=== PATIENT | female | born 2000 | race Caucasian/White ===

== ENCOUNTER 2021-10-20 16:15 | Inpatient (IN) | payer BC, OTHER ==
[~2021-10-20] VITALS: Ht 165.1 cm; Wt 61.4 kg
[2021-10-20 19:03] LABS: HEMOGLOBIN 13.7 g/dl (12.0-15.5); MEAN CORPUSCULAR HEMOGLOBIN 29.2 pg (27.0-33.0); MEAN CORPUSCULAR HGB CONC 33.4 g/dl (32.0-36.5); MEAN CORPUSCULAR VOLUME 87.4 fl (80.0-96.0); PLATELET COUNT, AUTOMATED 257 10^3/uL (150-450); RED BLOOD COUNT 4.69 10^6/uL (4.00-5.40); WHITE BLOOD COUNT 5.2 10^3/uL (4.0-10.0)
[2021-10-20 19:20] LABS: HCG, SERUM QUALITATIVE NEGATIVE (NEGATIVE)
[2021-10-20 19:54] LABS: BLOOD UREA NITROGEN 8 MG/DL (7-18); CHLORIDE LEVEL 110 MEQ/L (98-107); CREATININE FOR GFR 0.73 MG/DL (0.55-1.30); GLOMERULAR FILTRATION RATE > 60.0 (>60); GLUCOSE, FASTING 91 MG/DL (70-100); POTASSIUM SERUM 4.1 MEQ/L (3.5-5.1); SODIUM LEVEL 141 MEQ/L (136-145)
[2021-10-20 19:55] LABS: ACETAMINOPHEN LEVEL < 2.0 UG/ML (10.0-30.0); ALBUMIN 3.7 GM/DL (3.2-5.2); ALT/SGPT 17 IU/L (0-32); BILIRUBIN,DIRECT < 0.1 MG/DL (0.0-0.2); BILIRUBIN,TOTAL 0.2 MG/DL (0.2-1.0); CALCIUM LEVEL 9.3 MG/DL (8.5-10.1); CARBON DIOXIDE LEVEL 24 mmol/L (20-29); ETHYL ALCOHOL (ETHANOL) < 0.003 % (0.000-0.010); SALICYLATE LEVEL < 1.7 MG/DL (5.0-30.0); TOTAL PROTEIN 7.1 GM/DL (6.4-8.2)
[2021-10-20 20:10] LABS: AMPHETAMINES LEVEL URINE NEGATIVE (NEGATIVE)
[2021-10-20 20:11] LABS: BARBITURATES URINE NEGATIVE (NEGATIVE); BENZODIAZEPINES URINE NEGATIVE (NEGATIVE); CANNABINOIDS URINE NEGATIVE (NEGATIVE); COCAINE METABOLITE URINE NEGATIVE (NEGATIVE); METHADONE URINE NEGATIVE (NEGATIVE); OPIATES URINE NEGATIVE (NEGATIVE); PHENCYCLIDINE URINE NEGATIVE (NEGATIVE)
[2021-10-20 20:28] LABS: RSV AMPLIFICATION NEGATIVE (NEGATIVE)
[2021-10-21] MEDS ORDERED: VENL37.598 PO (02:17)
[2021-10-21] MEDS ORDERED: LAMO100T80 PO (02:17)
[2021-10-21] MEDS ORDERED: NORGTAB2 PO (02:17)
[2021-10-21] MEDS ORDERED: HOME MED LIST COMPLETE! XX SCH (02:20)
[2021-10-21] MEDS ORDERED: VENLAFAXINE 37.5 MG TAB PO ONE (10:00)
[2021-10-21] MEDS ORDERED: VENLAFAXINE **XR** 37.5 MG CAPSULE PO ONE (10:20)
[2021-10-21] MEDS ORDERED: MOM 30ML SUSPENSION UDC PO PRN ×2 (14:55→15:30)
[2021-10-21] MEDS ORDERED: IBUPROFEN 400MG TAB PO PRN ×2 (14:55→15:30)
[2021-10-21] MEDS ORDERED: MAALOX 30 ML SUSP *UDC PO PRN ×2 (14:55→15:30)
[2021-10-21] MEDS ORDERED: traZODone 50 MG TAB PO PRN (14:55)
[2021-10-21] MEDS ORDERED: hydrOXYzine 50 MG TAB PO PRN (14:55)
[2021-10-21 15:55] VITALS: BP 122/88
[2021-10-21] MEDS: traZODone 50 MG TAB PO PRN (20:54)
[2021-10-21] MEDS: buPROPion 100 MG TAB PO SCH (20:55)
[2021-10-21] MEDS ORDERED: buPROPion 100 MG TAB PO SCH (21:00)
[2021-10-22 06:29] VITALS: BP 117/66
[2021-10-22] MEDS ORDERED: VENLAFAXINE 37.5 MG TAB PO SCH (09:00)
[2021-10-22] MEDS ORDERED: VENLAFAXINE 37.5 MG TAB PO ONE ×2 (09:00)
[2021-10-22] MEDS: buPROPion 100 MG TAB PO SCH (09:00)
[2021-10-22] MEDS: lamoTRIgine 100MG TAB PO SCH (11:02)
[2021-10-22 18:34] VITALS: BP 125/73
[2021-10-22] MEDS: DOCUSATE SODIUM 100MG CAPSULE PO SCH (21:11)
[2021-10-22] MEDS: traZODone 50 MG TAB PO PRN (22:59)
[2021-10-23 07:10] VITALS: BP 114/56
[2021-10-23] MEDS: LURASIDONE 20 MG TAB (LATUDA) PO SCH (09:07)
[2021-10-23] MEDS: lamoTRIgine 100MG TAB PO SCH (09:08)
[2021-10-23] MEDS: DOCUSATE SODIUM 100MG CAPSULE PO SCH ×2 (09:08→19:16)
[2021-10-23] MEDS: buPROPion **XL** TABLET 150MG (WELLBUTRIN XL) PO SCH (10:59)
[2021-10-23 14:09] LABS: CHOLESTEROL RISK RATIO 3.294 (<5)
[2021-10-23 18:40] VITALS: BP 130/65
[2021-10-23] MEDS: MIRALAX *UNIT DOSE* 17GM PACKET PO PRN (19:16)
[2021-10-23] MEDS: traZODone 50 MG TAB PO PRN (22:16)
[2021-10-24 07:03] VITALS: BP 131/64
[2021-10-24] MEDS: buPROPion **XL** TABLET 150MG (WELLBUTRIN XL) PO SCH (08:39)
[2021-10-24] MEDS: DOCUSATE SODIUM 100MG CAPSULE PO SCH ×2 (08:39→20:37)
[2021-10-24] MEDS: LURASIDONE 20 MG TAB (LATUDA) PO SCH (08:39)
[2021-10-24] MEDS: lamoTRIgine 100MG TAB PO SCH (08:39)
[2021-10-24 18:37] VITALS: BP 137/63
[2021-10-24] MEDS: MIRALAX *UNIT DOSE* 17GM PACKET PO PRN (19:06)
[2021-10-24] MEDS: traZODone 50 MG TAB PO PRN (20:37)
[2021-10-25 06:31] VITALS: BP 108/58
[2021-10-25] MEDS: DOCUSATE SODIUM 100MG CAPSULE PO SCH ×2 (08:38→20:21)
[2021-10-25] MEDS: LURASIDONE 20 MG TAB (LATUDA) PO SCH (08:38)
[2021-10-25] MEDS: buPROPion **XL** TABLET 150MG (WELLBUTRIN XL) PO SCH (08:38)
[2021-10-25] MEDS: lamoTRIgine 100MG TAB PO SCH (08:38)
[2021-10-25 18:00] VITALS: BP 132/71
[2021-10-25] MEDS: MIRALAX *UNIT DOSE* 17GM PACKET PO PRN (19:24)
[2021-10-25] MEDS: traZODone 50 MG TAB PO PRN (20:21)
[2021-10-26] MEDS: hydrOXYzine 50 MG TAB PO PRN ×2 (03:42→20:27)
[2021-10-26] MEDS: lamoTRIgine 100MG TAB PO SCH (08:53)
[2021-10-26] MEDS: DOCUSATE SODIUM 100MG CAPSULE PO SCH ×2 (08:53→20:27)
[2021-10-26] MEDS: buPROPion **XL** TABLET 150MG (WELLBUTRIN XL) PO SCH (08:53)
[2021-10-26] MEDS: LURASIDONE 20 MG TAB (LATUDA) PO SCH (08:53)
[2021-10-26] MEDS ORDERED: BISACODYL 10 MG SUPP PR PRN (17:40)
[2021-10-26 18:00] VITALS: BP 128/59
[2021-10-26] MEDS: SENNA 8.6 MG TAB (SENOKOT) PO SCH (20:27)
[2021-10-27 07:04] VITALS: BP 110/60
[2021-10-27] MEDS: lamoTRIgine 100MG TAB PO SCH (08:23)
[2021-10-27] MEDS: LURASIDONE 20 MG TAB (LATUDA) PO SCH (08:23)
[2021-10-27] MEDS: buPROPion **XL** TABLET 150MG (WELLBUTRIN XL) PO SCH (08:23)
[2021-10-27] MEDS: SENNA 8.6 MG TAB (SENOKOT) PO SCH (08:23)
[2021-10-27] MEDS: DOCUSATE SODIUM 100MG CAPSULE PO SCH (08:23)
[2021-10-27] MEDS ORDERED: TRAZ-252 PO (11:26)
[2021-10-27] MEDS ORDERED: LATU20TA PO (11:26)
[2021-10-27] MEDS ORDERED: COLA100C5 PO (11:26)
[2021-10-27] MEDS ORDERED: HYDR50TA70 PO (11:26)
[2021-10-27] MEDS ORDERED: BUPR150T12 PO (11:26)
[2021-10-27] MEDS ORDERED: MIRA1POW3 PO (11:26)
[2021-10-27] MEDS ORDERED: LAMO100T80 PO (11:26)
[2021-10-27] MEDS ORDERED: LAMI1TAB9 PO (11:28)
== END 2021-10-27 12:07 | disposition home or self-care (01) | DRG 753 ==
LOC: M ED 16:15 → M PSY 10-21 14:51 → M ED 10-21 15:29
PROVIDERS: ADMIT Student in an Organized Health Care Education/Training Program; ATTEND Student in an Organized Health Care Education/Training Program
DX: F31.81 Bipolar II disorder (principal); F60.89 Other specific personality disorders; F41.1 Generalized anxiety disorder; Z20.822 Contact with and (suspected) exposure to COVID-19; R45.851 Suicidal ideations; Z79.899 Other long term (current) drug therapy; K59.00 Constipation, unspecified

== ENCOUNTER → 2022-01-08 | Outpatient (REF) | payer OTHER ==
[~2022-01-08] MED LIST: BUPR150T12 PO; COLA100C5 PO; HYDR50TA70 PO; LAMI1TAB9 PO; LAMO100T80 PO; LATU20TA PO; MIRA1POW3 PO; NORGTAB2 PO; TRAZ-252 PO; VENL37.598 PO
[2022-01-08 18:15] LABS: BASO # 0.1 10^3/uL (0.0-0.2); BASO % 1.6 % (0.0-1.0); EOS # 0.5 10^3/uL (0.0-0.5); EOS % 10.1 % (0.0-3.0); LYMPH # 1.7 10^3/uL (1.5-5.0); LYMPH % 38.4 % (24.0-44.0); MEAN CORPUSCULAR HEMOGLOBIN 28.4 pg (27.0-33.0); MEAN CORPUSCULAR HGB CONC 31.7 g/dl (32.0-36.5); MEAN CORPUSCULAR VOLUME 89.7 fl (80.0-96.0); MONO # 0.5 10^3/uL (0.0-0.8); MONO % 10.8 % (2.0-8.0); NEUTROPHILS # 1.7 10^3/uL (1.5-8.5); NEUTROPHILS % 38.9 % (36.0-66.0); PLATELET COUNT, AUTOMATED 239 10^3/uL (150-450); RED BLOOD COUNT 4.57 10^6/uL (4.00-5.40); WHITE BLOOD COUNT 4.5 10^3/uL (4.0-10.0)
[2022-01-08 18:40] LABS: ALT/SGPT 15 U/L (12-78); BILIRUBIN,TOTAL 0.4 MG/DL (0.2-1.0); BLOOD UREA NITROGEN 12 MG/DL (7-18); CALCIUM LEVEL 9.7 MG/DL (8.5-10.1); CARBON DIOXIDE LEVEL 26 MEQ/L (21-32); CHLORIDE LEVEL 103 MEQ/L (98-107); CHOLESTEROL LEVEL 220 MG/DL (<200); CREATININE FOR GFR 0.97 MG/DL (0.55-1.30); GLOMERULAR FILTRATION RATE > 60.0 (>60); GLUCOSE, FASTING 88 MG/DL (70-100); HDL CHOLESTEROL 72 MG/DL (>40); POTASSIUM SERUM 4.2 MEQ/L (3.5-5.1); SODIUM LEVEL 134 MEQ/L (136-145); TRIGLYCERIDES LEVEL 81 MG/DL (<150)
[2022-01-08 18:41] LABS: ALBUMIN 4.1 GM/DL (3.2-5.2); CHOLESTEROL RISK RATIO 3.055 (<5); FREE T4 0.93 NG/DL (0.76-1.46); LDL CHOLESTEROL 132 MG/DL (<100); NON-HDL-C 148 MG/DL; TOTAL PROTEIN 7.3 GM/DL (6.4-8.2)
[2022-01-08 19:41] LABS: TOTAL 25(OH) VITAMIN D 30.8 NG/ML (30.0-100.0)
[2022-01-08 20:02] LABS: HEMOGLOBIN A1c 4.9 %
== END ==
LOC: M LAB REF 17:24
PROVIDERS: ATTEND Nurse Practitioner Family
DX: Z68.23 Body mass index [BMI] 23.0-23.9, adult (principal); F79 Unspecified intellectual disabilities; K90.41 Non-celiac gluten sensitivity